=== PATIENT | female | born 1985 | race Caucasian/White ===

== ENCOUNTER 2017-04-26 13:27 | Emergency (ER) | payer OTHER ==
--- NOTE | 2017-04-26 15:07 | UC ---
UC General HPI - HPI Summary HPI Summary: 31 yo WF her fourth child, c/o right breast tenderness and redness x 3 days. Denies f/c, never had mastitis, she does rotate between 2 breasts for feeding - History of Current Complaint Chief Complaint: UCGeneralIllness Stated Complaint: SORE BREASTS Time Seen by Provider: 04/26/17 14:36 Hx Obtained From: Patient Hx Last Menstrual Period: 4-6 weeks ago- breast feeding Onset/Duration: Lasting Days Onset Severity: Moderate Current Severity: Moderate Pain Intensity: 7 - Allergy/Home Medications Allergies/Adverse Reactions: Allergies Allergy/AdvReac Type Severity Reaction Status Date / Time No Known Allergies Allergy Verified 04/26/17 13:40 Home Medications: Home Medications Ibuprofen [Ibuprofen 800 MG] 600 mg PO Q6H PRN 04/26/17 [History Confirmed 04/26] PMH/Surg Hx/FS Hx/Imm Hx Previously Healthy: Yes Other History Of: Negative For: HIV, Hepatitis B, Hepatitis C, Anticoagulant Therapy - Surgical History Surgical History: Yes Surgery Procedure, Year, and Place: [place] teeth extraction - Family History Known Family History: Positive: Cardiac Disease, Hypertension Negative: Diabetes - Social History Alcohol Use: Occasionally Substance Use Type: None Smoking Status (MU): Light Every Day Tobacco Smoker Type: Cigarettes Amount Used/How Often: 2/day Length of Time of Smoking/Using Tobacco: 12 years Have You Smoked in the Last Year: Yes Household Exposure Type: Cigarettes - Immunization History Most Recent Influenza Vaccination: declined Most Recent Tetanus Shot: 03/21/15 Most Recent Pneumonia Vaccination: none Review of Systems Constitutional: Negative Skin: Other - right breast tenderness and Eyes: Negative ENT: Negative Respiratory: Negative Cardiovascular: Negative Gastrointestinal: Negative Genitourinary: Negative Motor: Negative Neurovascular: Negative Musculoskeletal: Negative Neurological: Negative Psychological: Negative Is Patient Immunocompromised?: No All Other Systems Reviewed And Are Negative: Yes Physical Exam Triage Information Reviewed: Yes Vital Signs: Initial Vital Signs Temp 36.4 C 04/26/17 13:41 Pulse 105 04/26/17 13:41 Resp 18 04/26/17 13:41 BP 131/77 04/26/17 13:41 Pulse Ox 97 04/26/17 13:41 Eye Exam: Normal ENT Exam: Normal Dental Exam: Normal Neck exam: Normal Neck: Positive: 1 Respiratory Exam: Normal Cardiovascular Exam: Normal Abdominal Exam: Normal Musculoskeletal Exam: Normal Neurological Exam: Normal Psychological Exam: Normal Skin: Positive: Other - Additional Comments right breast erythema, warmth and tenderness bottom half below areola. + hardness but no discrete nodules Course/Dx - Course Course Of Treatment: US neg for abscess, current sx may be due to clogged ducts vs mastitis- Amox PO - Differential Dx - Multi-Symptom Provider Diagnoses: mastitis Discharge - Discharge Plan Condition: Stable Disposition: HOME Prescriptions: Amoxicillin PO (*) [Amoxicillin 875 MG (*)] 875 mg PO BID 10 Days #20 tab Patient Education Materials: Mastitis (ED) Referrals: Kishan Garner MD [Primary Care Provider] - Additional Instructions: f/u with PCP, [facility]
--- NOTE | 2017-04-26 15:53 | RAD ---
Indication: Right breast swelling. Real-time sonography of the right breast was performed. No solid or cystic lesions identified. No shadowing masses are noted. No fluid collections are noted. IMPRESSION: No solid or cystic lesion is identified. BI-RADS: 1, negative
[2017-04-26 15:59] VITALS: BP 116/74
== END 2017-04-26 16:42 | disposition home or self-care (01) ==
LOC: UCEAST 13:27
DX: N61.0 Mastitis without abscess (principal); F17.210 Nicotine dependence, cigarettes, uncomplicated
CPT/HCPCS: 99212; G0463